=== PATIENT | male | born 1995 | race Caucasian/White ===

== ENCOUNTER 2021-02-07 17:33 | Emergency (ER) | payer BC, MEDICAID ==
[~2021-02-07] VITALS: Ht 190.5 cm; Wt 111.8 kg
[2021-02-07] MEDS ORDERED: TETanus/Pertussis (Acell)/Diphther VAC/PF (Tdap-Adult) 0.5ml syringe IMVAC ONE (18:15)
[2021-02-07] MEDS ORDERED: LIDOcaine 1% 30ml preserv. free vial IJ ONE (18:15)
[2021-02-07] MEDS ORDERED: cephalexin 500mg capsule PO ONE (19:50)
[2021-02-07] MEDS ORDERED: CEPH-585 PO (20:03)
[2021-02-07 20:18] VITALS: BP 128/67
== END 2021-02-07 20:14 | disposition home or self-care (01) ==
LOC: ER 17:34
DX: S61.411A Laceration without foreign body of right hand, initial encounter (principal); Z79.899 Other long term (current) drug therapy; W26.8XXA Contact with other sharp object(s), not elsewhere classified, initial encounter; Y93.89 Activity, other specified; Y92.89 Other specified places as the place of occurrence of the external cause; Y99.8 Other external cause status
CPT/HCPCS: 12002; 90471; 90715; 99283

== ENCOUNTER 2023-06-11 14:42 | Emergency (ER) | payer MEDICAID ==
[~2023-06-11] VITALS: Ht 190.5 cm; Wt 149.1 kg
[2023-06-11 14:47] VITALS: TEMP 98.1
[2023-06-11] MEDS ORDERED: LIDOcaine/epinephrine/tetracaine TOPICAL sol 3 ML syringe TOP ONE (14:50)
[2023-06-11] MEDS ORDERED: LIDOcaine 1% W/epiNEPHrine 1:100,000 20ml vial IJ ONE (14:50)
[2023-06-11 17:29] VITALS: BP 113/62; PULSE 85; RESP 16; O2SAT 98
[2023-06-11] MEDS ORDERED: TETanus/Pertussis (Acell)/Diphther VAC/PF (Tdap-Adult) 0.5ml syringe IMVAC ONE (20:45)
== END 2023-06-11 22:00 | disposition home or self-care (01) ==
LOC: ER 14:42
DX: S81.012A Laceration without foreign body, left knee, initial encounter (principal); W01.10XA Fall on same level from slipping, tripping and stumbling with subsequent striking against unspecified object, initial encounter; Y93.89 Activity, other specified; Y92.89 Other specified places as the place of occurrence of the external cause; Y99.8 Other external cause status
CPT/HCPCS: 12004; 73564; 90471; 90715; 99283; J7030; A6446; A6449

== ENCOUNTER 2023-09-07 21:32 | Emergency (ER) | payer MEDICAID, OTHER ==
[~2023-09-07] VITALS: Ht 190.5 cm; Wt 162.3 kg
[2023-09-07 21:41] VITALS: RESP 18; TEMP 98.8
[2023-09-07] MEDS ORDERED: ringers solution, lactated 1000ml IV soln IV ONE (23:10)
[2023-09-07 23:18] LABS: MEAN PLATELET VOLUME 7.9 FL (7.4-10.4); RED CELL DISTRIBUTION WIDTH 13.9 % (11.5-14.5)
[2023-09-07 23:20] LABS: BASOPHILS % (AUTO) 0.4 % (0-1); EOSINOPHILS # (AUTO) 0.1 X10'3 (0-0.9); EOSINOPHILS % (AUTO) 1.1 % (0-6); HEMATOCRIT 45.9 % (42.0-52.0); HEMOGLOBIN 15.9 g/dl (14.0-17.9); LYMPHOCYTES # (AUTO) 1.4 X10'3 (1.1-4.8); LYMPHOCYTES % (AUTO) 19.8 % (21-51); MEAN CORPUSCULAR HEMOGLOBIN 29.4 PG (27.0-31.0); MEAN CORPUSCULAR HGB CONC 34.6 g/dL (33.0-36.5); MONOCYTES # (AUTO) 0.6 X10'3 (0-0.9); MONOCYTES % (AUTO) 8.3 % (2-12); NEUTROPHILS # (AUTO) 4.9 X10'3 (1.8-7.7); NEUTROPHILS % (AUTO) 70.4 % (42-75); PLATELET COUNT 221 X10'3 (140-440); RED BLOOD COUNT 5.41 X10'6 (4.70-6.10); WHITE BLOOD COUNT 6.9 X10'3 (4.5-11.0)
[2023-09-07 23:30] LABS: ALANINE AMINOTRANSFERASE 132 U/L (12-78); ALBUMIN/GLOBULIN RATIO 1.1 (1.1-1.5); ALKALINE PHOSPHATASE 60 IU/L (46-116); ANION GAP 9 (8-16); ASPARTATE AMINO TRANSFERASE 59 U/L (10-37); BILIRUBIN,TOTAL 1.4 MG/DL (0.1-1.0); BLOOD UREA NITROGEN 12 MG/DL (7-18); BUN/CREATININE RATIO 14.5 (10.0-20.0); CALCIUM 9.4 MG/DL (8.5-10.1); CHLORIDE 103 MMOL/L (99-107); CREATININE 0.83 MG/DL (0.60-1.10); GLUCOSE 112 MG/DL (70-104); SODIUM 137 MMOL/L (135-145); TOTAL CARBON DIOXIDE 25.2 MMOL/L (24-32); TOTAL PROTEIN 7.7 G/DL (6.4-8.2); eCRCL 156 ML/MIN; eGFR > 90 ML/MIN
[2023-09-07 23:35] LABS: PRO BRAIN NATRIURETIC PEPTIDE < 30 PG/ML (0-125)
[2023-09-07 23:41] LABS: POTASSIUM 4.1 MMOL/L (3.5-5.1)
[2023-09-07] MEDS ORDERED: diphenhydrAMINE 50 mg/ml inj IV ONE (23:50)
[2023-09-07] MEDS ORDERED: CEPH-585 PO (23:54)
[2023-09-08 00:37] VITALS: BP 148/88; PULSE 64; O2SAT 99
== END 2023-09-08 00:39 | disposition home or self-care (01) ==
LOC: ER 21:33
DX: L42 Pityriasis rosea (principal); L08.9 Local infection of the skin and subcutaneous tissue, unspecified; Z79.899 Other long term (current) drug therapy
CPT/HCPCS: 36415; 71045; 80053; 83880; 84484; 85025; 96361; 96374; 99284; J1200; J7120

== ENCOUNTER 2023-10-25 01:59 | Emergency (ER) | payer SELFPAY ==
[~2023-10-25] VITALS: Ht 190.5 cm; Wt 164.6 kg
[2023-10-25 02:03] VITALS: BP 135/90; PULSE 120; RESP 18; TEMP 98; O2SAT 97
[2023-10-25 02:45] LABS: ALANINE AMINOTRANSFERASE 118 U/L (12-78); ALBUMIN 3.9 G/DL (3.4-5.0); ALKALINE PHOSPHATASE 62 IU/L (46-116); ANION GAP 8 (8-16); ASPARTATE AMINO TRANSFERASE 36 U/L (10-37); BLOOD UREA NITROGEN 14 MG/DL (7-18); BUN/CREATININE RATIO 15.7 (10.0-20.0); CALCIUM 9.2 MG/DL (8.5-10.1); CHLORIDE 106 MMOL/L (99-107); CREATININE 0.89 MG/DL (0.60-1.10); GLUCOSE 91 MG/DL (70-104); POTASSIUM 4.2 MMOL/L (3.5-5.1); SODIUM 140 MMOL/L (135-145); TOTAL CARBON DIOXIDE 26.5 MMOL/L (24-32); TOTAL PROTEIN 7.7 G/DL (6.4-8.2); eCRCL 145 ML/MIN; eGFR > 90 ML/MIN
[2023-10-25 02:57] LABS: MONOTEST NEGATIVE (Neg)
[2023-10-25 03:03] LABS: BASOPHILS % (AUTO) 0.5 % (0-1); EOSINOPHILS # (AUTO) 0.1 X10'3 (0-0.9); EOSINOPHILS % (AUTO) 1.3 % (0-6); HEMATOCRIT 45.3 % (42.0-52.0); HEMOGLOBIN 15.6 g/dl (14.0-17.9); LYMPHOCYTES % (AUTO) 23.5 % (21-51); MEAN CORPUSCULAR HGB CONC 34.4 g/dL (33.0-36.5); MEAN CORPUSCULAR VOLUME 84.5 FL (78-98); MEAN PLATELET VOLUME 7.9 FL (7.4-10.4); MONOCYTES # (AUTO) 0.9 X10'3 (0-0.9); MONOCYTES % (AUTO) 11.2 % (2-12); NEUTROPHILS # (AUTO) 5.3 X10'3 (1.8-7.7); NEUTROPHILS % (AUTO) 63.5 % (42-75); PLATELET COUNT 212 X10'3 (140-440); RED BLOOD COUNT 5.36 X10'6 (4.70-6.10); RED CELL DISTRIBUTION WIDTH 13.6 % (11.5-14.5); WHITE BLOOD COUNT 8.4 X10'3 (4.5-11.0)
[2023-10-25 03:28] LABS: FREE T4 (FREE THYROXINE) 0.94 NG/DL (0.73-1.40)
== END 2023-10-25 03:47 | disposition home or self-care (01) ==
LOC: ER 01:59
DX: R53.83 Other fatigue (principal); K59.00 Constipation, unspecified
CPT/HCPCS: 36415; 80053; 83735; 84439; 84443; 85025; 86308; 87502; 87503; 87811; 99283